=== PATIENT | female | born 1985 | race Caucasian/White ===

== ENCOUNTER 2018-06-27 21:08 | Emergency (ER) | payer BC, OTHER ==
[~2018-06-27] VITALS: Ht 165.1 cm; Wt 61.2 kg
[~2018-06-27 21:08] MED LIST: COQ-10100 MG; FISH OIL 1,001000 M2; HYDROCODON-ACE1 EAC7; IRON325; SENNA8.6 MG; SENNA8.8 MG/5 M; SMOOTHLAX238 GM; VITAMIN B COMP1 EACH PO; VITAMIN B-12500 MCG; VITAMIN D1000 UNI1 PO
[2018-06-27] MEDS ORDERED: HYDROXYCHLOROQ200 M1 PO (21:26)
[2018-06-27] MEDS ORDERED: LYRICA 50 MG50 MG PO (21:27)
[2018-06-28 01:04] VITALS: BP 125/84
== END 2018-06-28 01:05 | disposition home or self-care (01) ==
LOC: ER 21:08
DX: J02.9 Acute pharyngitis, unspecified (principal); G43.909 Migraine, unspecified, not intractable, without status migrainosus; N80.9 Endometriosis, unspecified; Z88.6 Allergy status to analgesic agent

== ENCOUNTER 2019-04-23 14:46 | Emergency (ER) | payer BC, OTHER ==
[~2019-04-23] VITALS: Ht 165.1 cm; Wt 56.7 kg
[~2019-04-23 14:46] MED LIST changes: +HYDROXYCHLOROQ200 M1 PO; +LYRICA 50 MG50 MG PO
[2019-04-23 16:20] VITALS: BP 96/69
== END 2019-04-23 16:20 | disposition home or self-care (01) ==
LOC: ER 14:46
DX: J06.9 Acute upper respiratory infection, unspecified (principal); R19.7 Diarrhea, unspecified; G43.909 Migraine, unspecified, not intractable, without status migrainosus; Z79.899 Other long term (current) drug therapy